=== PATIENT | female | born 1965 | race African-American/Black ===

== ENCOUNTER → 2017-09-09 | Outpatient (CLI) | payer BC ==
--- NOTE | 2017-09-10 08:13 | MM ---
Reason for exam: screening (asymptomatic). Last mammogram was performed 4 years and 1 month ago. History: Reductions of both breasts, 2014. Took hormonal contraceptives for 9 years. Physical Findings: A clinical breast exam by your physician is recommended on an annual basis and results should be correlated with mammographic findings. MG Screening Mammo w CAD Bilateral CC and MLO view(s) were taken. Prior study comparison: August 12, 2013, bilateral digital screening mammo w/CAD. May 12, 2009, bilateral digital screening mammogram. There are scattered fibroglandular densities. Breasts are smaller compatible with patients weight loss. No significant changes when compared with prior studies. ASSESSMENT: Negative, BI-RAD 1 RECOMMENDATION: Routine screening mammogram of both breasts in 1 year.
== END | disposition home or self-care (01) ==
LOC: RADMAMWWP 06:56
PROVIDERS: ATTEND Family Medicine
DX: Z12.31 Encounter for screening mammogram for malignant neoplasm of breast (principal)

== ENCOUNTER 2017-10-15 07:04 | Day surgery (SDC) | payer BC ==
[2017-10-14 10:42] VITALS: BMI 33.2
[~2017-10-15 07:04] MED LIST: LACTATED RINGERS 1,000 ML IV SCH
[2017-10-15] MEDS ORDERED: LACTATED RINGERS 1,000 ML IV ONE (07:14)
[2017-10-15 07:27] VITALS: RESP 16; TEMP 98.2
[2017-10-15] MEDS ORDERED: LIDOCAINE 1% INJ 10MG/ML (20 ML MDV) ONE (07:40)
[2017-10-15] MEDS ORDERED: PROPOFOL 10 MG/ML 20 ML VIAL IV ONE (07:40)
--- NOTE | 2017-10-15 07:54 | P.GSHP ---
History of Present Illness H&P Date: 10/15/17 Chief Complaint: Screening colonoscopy This a 52-year-old female referred from Dr. Grande. Patient is today for screening colonoscopy. She denies a significant GI complaints. Past Medical History Past Medical History: GERD/Reflux, Hypertension Additional Past Medical History / Comment(s): hx. MIGRAINES, anemia History of Any Multi-Drug Resistant Organisms: None Reported Past Surgical History: Adenoidectomy, Bariatric Surgery, Breast Surgery, Section, Cholecystectomy, Orthopedic Surgery, Tonsillectomy, Uterine Ablation Additional Past Surgical History / Comment(s): ISABELA KNEE ARTHROSCOPY,CYSTOSCOPY, LAPAROSCOPIC DARIAN-EN-Y , PANNICULECTOMY, breast reduction Past Anesthesia/Blood Transfusion Reactions: No Reported Reaction Smoking Status: Current every day smoker - Past Family History Father Family Medical History: Cancer Medications and Allergies Home Medications Medication Instructions Recorded Confirmed Type Buta/APAP/Caf/Cod 83-632-05-30 1 - 2 each PO DAILY PRN 03/24/14 10/15/17 History [Fioricet W/Codeine] Cholecalciferol [Vitamin D3] 50,000 unit PO WEEKLY 03/24/14 10/15/17 History Omeprazole [PriLOSEC] 40 mg PO DAILY 03/24/14 10/15/17 History Ferrous Sulfate [Feosol] 325 mg PO DAILY 06/13/15 10/15/17 History Folic Acid 1 mg PO DAILY 06/13/15 10/15/17 History ALPRAZolam [Xanax] 0.25 mg PO BID PRN 10/14/17 10/15/17 History Cholecalciferol [Vitamin D3] 5,000 unit PO DAILY 10/14/17 10/15/17 History Losartan-Hctz 50-12.5 mg [Hyzaar 1 each PO DAILY 10/14/17 10/15/17 History 50-12.5] Multivit with Calcium,Iron,Min 1 each PO DAILY 10/14/17 10/15/17 History [Women's Multivitamin] Potassium 99 mg PO DAILY 10/14/17 10/15/17 History oxyCODONE-APAP 7.5-325MG [Percocet 1 tab PO Q6HR PRN 10/14/17 10/15/17 History 7.5-325 mg] Allergies Allergy/AdvReac Type Severity Reaction Status Date / Time No Known Allergies Allergy Verified 10/15/17 07:31 Surgical - Exam Vital Signs Temp Pulse Resp BP Pulse Ox 98.2 F 85 16 131/89 100 10/15/17 07:25 10/15/17 07:25 10/15/17 07:25 10/15/17 07:25 10/15/17 07:25 - General well developed, no distress - Eyes PERRL - ENT normal pinna - Neck no masses - Respiratory normal expansion - Cardiovascular Rhythm: regular - Abdomen Abdomen: soft, non tender Assessment and Plan Assessment: We'll perform screening colonoscopy.
--- NOTE | 2017-10-15 08:07 | P.OP ---
Date of Procedure: 10/15/17 Preoperative Diagnosis: Screening colonoscopy Postoperative Diagnosis: Normal colonoscopy Procedure(s) Performed: Colonoscopy Anesthesia: MAC Surgeon: Tim Dunn Pathology: none sent Condition: stable Disposition: PACU Description of Procedure: PROCEDURE: The patient was placed on the endoscopy table in the lateral position. Digital rectal examination was performed which revealed no abnormalities. Flexible colonoscope was then placed in the patient's anus and passed throughout the entire colon. The ileocecal valve was visualized. The cecum, ascending, transverse, descending and sigmoid colon were normal. The rectum was normal as well. There were no masses, polyps or diverticula noted in the entire colon. SUMMARY OF FINDINGS: Normal colonoscopy.
[2017-10-15 08:27] VITALS: BP 144/90; PULSE 77
== END 2017-10-15 09:01 | disposition home or self-care (01) ==
LOC: ORWHC2ENDO 07:04
PROVIDERS: ATTEND Surgery
DX: Z12.11 Encounter for screening for malignant neoplasm of colon (principal); I10 Essential (primary) hypertension; K21.9 Gastro-esophageal reflux disease without esophagitis; D64.9 Anemia, unspecified; F17.200 Nicotine dependence, unspecified, uncomplicated; Z79.899 Other long term (current) drug therapy; Z98.84 Bariatric surgery status; Z80.9 Family history of malignant neoplasm, unspecified
CPT/HCPCS: 81025; G0121; J2001; J2704

== ENCOUNTER → 2018-12-27 | Outpatient (CLI) | payer BC ==
--- NOTE | 2018-12-29 11:50 | MM ---
Reason for exam: screening (asymptomatic). Last mammogram was performed 1 year and 4 months ago. History: Reductions of both breasts, 2013. Took hormonal contraceptives for 9 years. Physical Findings: A clinical breast exam by your physician is recommended on an annual basis and results should be correlated with mammographic findings. MG Screening Mammo w CAD Bilateral CC and MLO view(s) were taken. Prior study comparison: September 09, 2017, bilateral MG screening mammo w CAD. August 12, 2013, bilateral digital screening mammo w/CAD. There are scattered fibroglandular densities. Benign appearing bilateral calcifications. No suspicious abnormality. No significant changes when compared with prior studies. ASSESSMENT: Benign, BI-RAD 2 RECOMMENDATION: Routine screening mammogram of both breasts in 1 year.
== END | disposition home or self-care (01) ==
LOC: RADMAMWWP 11:31
PROVIDERS: ATTEND Family Medicine
DX: Z12.31 Encounter for screening mammogram for malignant neoplasm of breast (principal)
CPT/HCPCS: 77067

== ENCOUNTER 2019-05-13 18:10 | Emergency (ER) | payer BC ==
[2019-05-13] MEDS ORDERED: KETOROLAC 60 MG/2 ML VIAL IM STA (19:03)
--- NOTE | 2019-05-13 19:08 | ED ---
General Adult HPI - General Chief complaint: Extremity Injury, Upper Stated complaint: carpal tunnel flare Time Seen by Provider: 05/13/19 18:30 Source: patient, family Mode of arrival: ambulatory - History of Present Illness Initial comments: Patient is a 54-year-old female complaining of right wrist pain 3-4 days. Patient states she has known carpal tunnel the right wrist and wears a splint at night. 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 Patient denies any injury to the rest. Patient admits to having oxycodone at home for pain. Pt has no other complaints at this time. - Related Data Home Medications Medication Instructions Recorded Confirmed Buta/APAP/Caf/Cod [id number] 1 - 2 each PO DAILY PRN 03/24/14 10/15/17 [Fioricet W/Codeine] Cholecalciferol [Vitamin D3] 50,000 unit PO WEEKLY 03/24/14 10/15/17 Omeprazole [PriLOSEC] 40 mg PO DAILY 03/24/14 10/15/17 Ferrous Sulfate [Feosol] 325 mg PO DAILY 06/13/15 10/15/17 Folic Acid 1 mg PO DAILY 06/13/15 10/15/17 ALPRAZolam [Xanax] 0.25 mg PO BID PRN 10/14/17 10/15/17 Cholecalciferol [Vitamin D3] 5,000 unit PO DAILY 10/14/17 10/15/17 Losartan-Hctz 50-12.5 mg [Hyzaar 1 each PO DAILY 10/14/17 10/15/17 50-12.5] Multivit with Calcium,Iron,Min 1 each PO DAILY 10/14/17 10/15/17 [Women's Multivitamin] Potassium 99 mg PO DAILY 10/14/17 10/15/17 oxyCODONE-APAP 7.5-325MG [Percocet 1 tab PO Q6HR PRN 10/14/17 10/15/17 7.5-325 mg] Previous Rx's Medication Instructions Recorded methylPREDNISolone [Medrol Dose 4 mg PO DIRECTED #1 pack 05/13/19 Pack] Allergies Allergy/AdvReac Type Severity Reaction Status Date / Time No Known Allergies Allergy Verified 05/13/19 18:29 Review of Systems ROS Statement: Those systems with pertinent positive or pertinent negative responses have been documented in the HPI. ROS Other: All systems not noted in ROS Statement are negative. Past Medical History Past Medical History: GERD/Reflux, Hypertension Additional Past Medical History / Comment(s): hx. MIGRAINES, anemia History of Any Multi-Drug Resistant Organisms: None Reported Past Surgical History: Adenoidectomy, Bariatric Surgery, Breast Surgery, Section, Cholecystectomy, Orthopedic Surgery, Tonsillectomy, Uterine Ablation Additional Past Surgical History / Comment(s): ISABELA KNEE ARTHROSCOPY,CYSTOSCOPY,LAPAROSCOPIC DARIAN-EN-Y , PANNICULECTOMY, breast reduction Past Anesthesia/Blood Transfusion Reactions: No Reported Reaction Past Psychological History: No Psychological Hx Reported Smoking Status: Current every day smoker Past Alcohol Use History: None Reported Past Drug Use History: None Reported - Past Family History Father Family Medical History: Cancer General Exam - General Exam Comments Initial Comments: GENERAL: Well-appearing, well-nourished and in no acute distress. HEAD: Atraumatic, normocephalic. EYES: Pupils equal round and reactive to light, extraocular movements intact, sclera anicteric, conjunctiva are normal. ENT: TMs normal, nares patent, oropharynx clear without exudates. Moist mucous membranes. NECK: Normal range of motion, supple without lymphadenopathy or JVD. LUNGS: Breath sounds clear to auscultation bilaterally and equal. No wheezes rales or rhonchi. HEART: Regular rate and rhythm without murmurs, rubs or gallops. ABDOMEN: Soft, nontender, normoactive bowel sounds. No guarding, no rebound. No masses appreciated. : Deferred EXTREMITIES: Pain in the right wrist, palmar aspect. Sensation is equal, bilateral. Normal range of motion of the right wrist. No erythema, bruising, edema. NEUROLOGICAL: Cranial nerves II through XII grossly intact. Normal speech, normal gait. PSYCH: Normal mood, normal affect. SKIN: Warm, Dry, normal turgor, no rashes or lesions noted. Course Vital Signs 05/13/19 05/13/19 18:26 19:16 Temperature 98.9 F 98.2 F Pulse Rate 75 78 Respiratory 18 16 Rate Blood Pressure 150/98 140/84 O2 Sat by Pulse 100 98 Oximetry Medical Decision Making - Medical Decision Making Patient is a 54-year-old female complaining of increased pain from right wrist carpal tunnel. Patient denies any trauma to right wrist. Patient was given a Toradol injection and counseled on using NSAIDs for pain relief. Patient will be given a short course of steroids upon discharge. Patient was counseled to follow up with her PCP for further management. Disposition Clinical Impression: Carpal tunnel syndrome, right, Pain in right wrist Disposition: HOME SELF-CARE Condition: Stable Instructions (If sedation given, give patient instructions): Swollen Joint (ED) Additional Instructions: Please return to the Emergency Department if symptoms worsen or any other concerns. Follow-up with PCP regarding further management. Prescriptions: methylPREDNISolone [Medrol Dose Pack] 4 mg PO DIRECTED #1 pack Is patient prescribed a controlled substance at d/c from ED?: No Referrals: Marcel Grande MD [Primary Care Provider] - 1-2 days
[2019-05-13 19:17] VITALS: BP 140/84; PULSE 78; RESP 16; TEMP 98.2
== END 2019-05-13 19:16 | disposition home or self-care (01) ==
LOC: EC 18:10
DX: G56.01 Carpal tunnel syndrome, right upper limb (principal); I10 Essential (primary) hypertension; K21.9 Gastro-esophageal reflux disease without esophagitis; F17.200 Nicotine dependence, unspecified, uncomplicated; Z79.899 Other long term (current) drug therapy; Z98.84 Bariatric surgery status
CPT/HCPCS: 99283; 96372; J1885

== ENCOUNTER 2019-08-11 06:28 | Day surgery (SDC) | payer BC ==
[2019-08-06 15:13] VITALS: BMI 32.6
[~2019-08-11 06:28] MED LIST changes: +LIDOCAINE 1% 20 ML VIAL (10MG/ML) FOR IV START INTRADERMA PRN; +Pre Op ABX Message 1 EACH MISC MISCELLANE ONE
[2019-08-11 06:44] VITALS: RESP 16
[2019-08-11] MEDS ORDERED: fentaNYL (PF) 50 MCG/ML 2 ML AMP ONE (07:31)
[2019-08-11] MEDS ORDERED: PROPOFOL 10 MG/ML 20 ML VIAL IV ONE (07:31)
[2019-08-11] MEDS ORDERED: KETAMINE 10 MG/ML 20 ML VIAL ONE (07:31)
[2019-08-11] MEDS ORDERED: MIDAZOLAM 2 MG/2 ML VIAL ONE (07:31)
[2019-08-11] MEDS ORDERED: LIDOCAINE 1%-EPI 1:100,000 20 ML VIAL SQ ONE (07:35)
[2019-08-11] MEDS ORDERED: BUPIVACAINE (PF) 0.5% 30 ML VIAL SQ ONE (07:35)
[2019-08-11 08:45] VITALS: BP 121/69; PULSE 59
--- NOTE | 2019-08-13 07:46 | P.OP ---
Date of Procedure: 08/11/19 Preoperative Diagnosis: Right carpal tunnel syndrome Postoperative Diagnosis: Right carpal tunnel syndrome Procedure(s) Performed: Right endoscopic carpal tunnel release Anesthesia: MAC, local Surgeon: Ricardo Tobias Estimated Blood Loss (ml): 1 Condition: stable Disposition: PACU Indications for Procedure: The patient is a pleasant 54-year-old female who was diagnosed with right carpal tunnel syndrome. Treatment options (and associated risks and benefits) were discussed in the office. The patient elected to proceed with surgical release. In preop, the patient denied any additional questions or concerns. Consent forms were signed. The operative site was confirmed and marked. Description of Procedure: The patient was positioned supine with the right arm on an arm board. A tourniquet was applied. Monitored anesthesia was administered uneventfully. A time-out was performed, confirming patient identifiers, the operative side, site and the procedure to be performed: all team members expressed agreement. Using aseptic technique, local anesthetic was injected into the subcutaneous tissues around the planned incision. The right upper extremity was then prepped and draped in standard, sterile fashion. The limb was exsanguinated with an Esmarch and the tourniquet was inflated. Loupe magnification was used throughout the case for optimum visualization. A 1.5 cm transverse incision was marked just proximal to the wrist flexion crease, in line with the radial border of the ring finger. The skin was sharply incised and the subcutaneous tissues were bluntly spread. The volar carpal fascia was identified and sharply incised. A synovial elevator was used to release adhesions on the underside of the transverse carpal ligament. The washboard effect was palpable. A dilator was inserted to sound and enlarge the carpal tunnel. The hamate hook was palpable ulnarly. The side-specific guide and camera were inserted. The transverse carpal ligament was clearly visualized above. The distal edge of the ligament was identified and palpated with a probe. A rasp was used to clear the remaining synovial adhesions. The endoscopic blade was inserted and the distal half of the ligament was sharply incised. This was quite thickened and dense. Residual distal transverse fibers were released and then the proximal portion of the ligament was divided. Wide release of ligament was visually confirmed. The camera was removed. The volar carpal fascia proximal and distal to the incision was released with scissors under direct visualization. The tourniquet was released. Good hemostasis was obtained with held pressure. The wound was thoroughly irrigated with normal saline. The incision was closed with interrupted 4-0 Nylon sutures. Additional local anesthetic with epinephrine was injected for adjunctive postoperative pain control and hemostasis. A soft, sterile dressing was applied. All sponge, needle and instrument counts were correct at the end of the case. The patient tolerated the procedure well and was transferred to recovery in stable condition.
== END 2019-08-11 09:05 | disposition home or self-care (01) ==
LOC: OR 06:28
PROVIDERS: ATTEND Orthopaedic Surgery
DX: G56.03 Carpal tunnel syndrome, bilateral upper limbs (principal); I10 Essential (primary) hypertension; K21.9 Gastro-esophageal reflux disease without esophagitis; M18.0 Bilateral primary osteoarthritis of first carpometacarpal joints; F17.210 Nicotine dependence, cigarettes, uncomplicated; Z87.442 Personal history of urinary calculi; Z79.891 Long term (current) use of opiate analgesic; Z79.1 Long term (current) use of non-steroidal anti-inflammatories (NSAID); Z79.899 Other long term (current) drug therapy; Z97.3 Presence of spectacles and contact lenses; Z98.890 Other specified postprocedural states; Z83.3 Family history of diabetes mellitus; Z82.49 Family history of ischemic heart disease and other diseases of the circulatory system
CPT/HCPCS: 29848; J2250; J3010; J2704

== ENCOUNTER → 2020-06-06 | Outpatient (CLI) | payer BC ==
--- NOTE | 2020-06-08 11:05 | MM ---
Reason for exam: screening (asymptomatic). Last mammogram was performed 1 year and 5 months ago. History: Reductions of both breasts, 2013. Took hormonal contraceptives for 9 years. Physical Findings: A clinical breast exam by your physician is recommended on an annual basis and results should be correlated with mammographic findings. MG Screening Mammo w CAD Bilateral CC and MLO view(s) were taken. Prior study comparison: December 27, 2018, bilateral MG screening mammo w CAD. September 09, 2017, bilateral MG screening mammo w CAD. There are scattered fibroglandular densities. No significant changes when compared with prior studies. ASSESSMENT: Benign, BI-RAD 2 RECOMMENDATION: Routine screening mammogram of both breasts in 1 year.
== END | disposition home or self-care (01) ==
LOC: RADMAMWWP 16:13
PROVIDERS: ATTEND Family Medicine
DX: Z12.31 Encounter for screening mammogram for malignant neoplasm of breast (principal)
CPT/HCPCS: 77067

== ENCOUNTER → 2020-12-15 | Outpatient (CLI) | payer BC ==
[2020-12-15 17:50] LABS: African American GFR (CKD) >90 (>60 ml/min/1.73 sqM); Blood Urea Nitrogen 16 mg/dL (7-17); Non-African American GFR(CKD) >90 (>60 ml/min/1.73 sqM)
--- NOTE | 2020-12-16 08:22 | CT ---
EXAMINATION TYPE: CT angio abdomen DATE OF EXAM: 12/15/2020 HISTORY: Gross hematuria. CT DLP: 1173.8mGycm Automated Exposure Control for Dose Reduction was Utilized. CONTRAST: CT scan of the abdomen is performed without oral but with IV Contrast, patient injected with 100ml mL of Isovue 370. COMPARISON: CT abdomen July 18, 2015 FINDINGS: VASCULAR: Patent celiac artery, SMA, ALEXIS, and bilateral single renal arteries. Patent iliac arteries in the abdomen and upper pelvis. Mild calcified plaque in the left common iliac artery. No significan t stenosis. No linear hypodensity to suggest dissection. No aneurysm. LUNG BASES: No significant abno rmality is appreciated. LIVER/GB: Cholecystectomy clips are redemonstrated. PANCREAS: No significant abnormality is seen. SPLEEN: No significant abnormality is seen. ADRENALS: No significant abnormality is seen. KIDNEYS: Symmetric cortical medullary uptake and excretion with simple appearing 1.5 cm thin-walled c yst upper pole right kidney axial image 28 redemonstrated. Some small nonobstructing scattered right- sided renal calculi measuring up to 6 mm in size. Focal scarring lateral aspect upper pole right kidn ey redemonstrated. No hydronephrosis seen bilaterally. BOWEL: Patient has little intra-abdominal fat. No suspicious small or large bowel dilatation. Surgica l changes epigastric region from gastric bypass surgery redemonstrated. LYMPH NODES: No greater than 1cm abdominal lymph nodes are appreciated. OSSEOUS STRUCTURES: Interval surgery with metallic disc material L4-L5 level. Subtle grade 1 anteroli sthesis L4 on L5. Alignment stable. OTHER: Stable intramuscular lipoma of the right external oblique muscle measuring 4.5 x 1.8 cm axial image 42. Linear densities in the upper pelvis are symmetric along the anterior superior aspect of th e uterus could relate to prior pelvic surgery. IMPRESSION: No significant vascular anomaly. Right-sided nephrolithiasis redemonstrated. No hydroneph rosis identified bilaterally.
== END | disposition home or self-care (01) ==
LOC: RADCTMAIN 17:09
PROVIDERS: ATTEND Urology
DX: N20.0 Calculus of kidney (principal)
CPT/HCPCS: 82565; 84520; 74175; 36415; Q9967

== ENCOUNTER → 2020-12-16 | Outpatient (CLI) | payer BC ==
[2020-12-16 13:13] LABS: Basophils % (A) 1 %; Eosinophils # (A) 0.1 k/uL (0-0.7); Eosinophils % (A) 1 %; HCT 40.9 % (34.0-46.0); Lymphocytes # (A) 1.5 k/uL (1.0-4.8); Lymphocytes % (A) 23 %; MCHC 31.7 g/dL (31.0-37.0); Mean Platelet Volume 7.7; Monocytes # (A) 0.3 k/uL (0-1.0); Monocytes % (A) 4 %; Neutrophils # (A) 4.4 k/uL (1.3-7.7); Neutrophils % (A) 68 %; Platelet Count 284 k/uL (150-450); RBC 4.05 m/uL (3.80-5.40); RDW 12.5 % (11.5-15.5); WBC 6.5 k/uL (3.8-10.6)
[2020-12-16 15:31] LABS: Erythrocyte Sedimentation Rate 61 mm/hr (0-20)
[2020-12-16 21:15] LABS: Cyclic Citrull Pep IgG Unit >300.0 U/mL; Cyclic Citrullinated Pep IgG POSITIVE (NEGATIVE)
[2020-12-16 21:41] LABS: Albumin 4.4 g/dL (3.80-4.90); Albumin/Globulin Ratio 2.1 (1.60-3.17); Anion Gap 18.5 mmol/L (4.00-12.00); BUN/Creat Ratio 22.22 Ratio (12.00-20.00); C Reactive Protein 1.4 mg/dL (0.0-0.8); Calcium 9.5 mg/dL (8.7-10.3); Carbon Dioxide 27.5 mmol/L (21.6-31.8); Globulin 2.1 g/dL (1.6-3.3); Non-African American GFR(CKD) 72.5 (60.0-200.0); Potassium 4.4 mmol/L (3.5-5.5); Total Bilirubin 0.2 mg/dL (0.3-1.2); Total Protein 6.5 g/dL (6.2-8.2)
[2020-12-20 15:14] LABS: ANA Pattern Homogeneous
== END | disposition home or self-care (01) ==
LOC: LABWHC1 12:24
PROVIDERS: ATTEND Family Medicine
DX: M25.50 Pain in unspecified joint (principal); F11.20 Opioid dependence, uncomplicated
CPT/HCPCS: 36415; 80053; 85025; 85652; 86038; 86039; 86140; 86200; 86431

== ENCOUNTER → 2021-05-20 | Outpatient (CLI) | payer BC ==
--- NOTE | 2021-05-20 14:17 | MR ---
EXAMINATION TYPE: MR shoulder RT wo con DATE OF EXAM: 05/20/2021 COMPARISON: None HISTORY: Right shoulder pain x 6 mos. Exam performed with no contrast. Biceps tendon is intact. Glenoid zenia appear intact. The subscapularis tendon is intact. There is some thickening and increased signal in the supraspinatus tendon at the greater tuberosity o f the humerus. There is some spurring at the AC joint and mild impingement on the supraspinatus tendo n. There is no retraction of the supraspinatus tendon. There is some spurring of the humeral head. There is narrowing of the glenohumeral joint space with s ubchondral cystic changes in the glenoid. IMPRESSION: Osteoarthritis at the glenohumeral joint. There is mild thickening and increased signal in the supras pinatus tendon consistent with tendinitis. I do not see a full-thickness tear. No fracture.
== END | disposition home or self-care (01) ==
LOC: RADMRIMAIN 12:45
PROVIDERS: ATTEND Nurse Practitioner Family
DX: M19.011 Primary osteoarthritis, right shoulder (principal)

== ENCOUNTER → 2021-08-10 | Outpatient (CLI) | payer BC ==
--- NOTE | 2021-08-11 12:33 | MM ---
Reason for exam: screening (asymptomatic). Last mammogram was performed 1 year and 2 months ago. History: Reductions of both breasts, 2014. Took hormonal contraceptives for 9 years. Physical Findings: A clinical breast exam by your physician is recommended on an annual basis and results should be correlated with mammographic findings. MG Screening Mammo w CAD Bilateral CC and MLO view(s) were taken. Prior study comparison: June 06, 2020, bilateral MG screening mammo w CAD. December 27, 2018, bilateral MG screening mammo w CAD. September 09, 2017, bilateral MG screening mammo w CAD. There are scattered fibroglandular densities. Focal asymmetry left MLO view, new. This finding is changed when compared with previous exams. ASSESSMENT: Incomplete: need additional imaging evaluation, BI-RAD 0 RECOMMENDATION: Special view mammogram of the left breast. If lesion persists on supplemental views, image directed ultrasound is recommended. [facility] will attempt to contact patient to return for supplemental views and ultrasound if indicated.
== END | disposition home or self-care (01) ==
LOC: RADMAMWWP 15:16
PROVIDERS: ATTEND Family Medicine
DX: Z12.31 Encounter for screening mammogram for malignant neoplasm of breast (principal); Z79.3 Long term (current) use of hormonal contraceptives
CPT/HCPCS: 77067

== ENCOUNTER → 2021-08-18 | Outpatient (CLI) | payer BC ==
--- NOTE | 2021-08-18 11:16 | MM ---
Reason for exam: additional evaluation requested from abnormal screening. Last mammogram was performed less than 1 month ago. History: Reductions of both breasts, 2013. Took hormonal contraceptives for 9 years. Physical Findings: Nurse did not find any significant physical abnormalities on exam. MG Work Up Mamm w CAD LT CC, MLO, ML, and spot compression MLO view(s) were taken of the left breast. Prior study comparison: August 10, 2021, bilateral MG screening mammo w CAD. June 06, 2020, bilateral MG screening mammo w CAD. There are scattered fibroglandular densities. There is no discrete abnormality including area of concern. These results were verbally communicated with the patient and result sheet given to the patient on 08/18/21. ASSESSMENT: Benign, BI-RAD 2 RECOMMENDATION: Return to routine screening mammogram schedule for both breasts.
== END | disposition home or self-care (01) ==
LOC: RADMAMWWP 07:00
PROVIDERS: ATTEND Family Medicine
DX: N64.89 Other specified disorders of breast (principal); Z79.3 Long term (current) use of hormonal contraceptives
CPT/HCPCS: 77065

== ENCOUNTER 2024-03-05 08:10 | Day surgery (SDC) | payer BC ==
[2024-03-03 11:09] VITALS: BMI 36.4
--- NOTE | 2024-03-05 07:43 | P.GSHP ---
History of Present Illness H&P Date: 03/05/24 CHIEF COMPLAINT: GERD HISTORY OF PRESENT ILLNESS: The patient is a 59-year-old female who presents reports gastroesophageal reflux disease. Upper endoscopy was offered for further evaluation and management. PAST MEDICAL HISTORY: Please see list. PAST SURGICAL HISTORY: Please see list. MEDICATIONS: Please see list. ALLERGIES: Please see list. SOCIAL HISTORY: No illicit drug use FAMILY HISTORY: No reports of Crohn disease or ulcerative colitis. REVIEW OF ORGAN SYSTEMS: CONSTITUTIONAL: No reports of fevers or chills. GI: Denies any blood in stools or constipation. PHYSICAL EXAM: VITAL SIGNS: Stable GENERAL: Well-developed and pleasant in no acute distress. HEENT: No scleral icterus. Extraocular movements grossly intact. Moist buccal mucosa. NECK: Supple without lymphadenopathy. CHEST: Unlabored respirations. Equal bilateral excursions. CARDIOVASCULAR: Regular rate and rhythm. Distal 2+ pulses. ABDOMEN: Soft, nondistended. MUSCULOSKELETAL: No clubbing, cyanosis, or edema. ASSESSMENT: 1. Gastroesophageal reflux disease PLAN: 1. Recommend proceeding with an upper endoscopy Past Medical History Past Medical History: GERD/Reflux, Hypertension, Rheumatoid Arthritis (RA) Additional Past Medical History / Comment(s): Migraines, hx of kidney stones. History of Any Multi-Drug Resistant Organisms: None Reported Past Surgical History: Adenoidectomy, Back Surgery, Bariatric Surgery, Breast Surgery, Section, Cholecystectomy, Orthopedic Surgery, Tonsillectomy, Uterine Ablation Additional Past Surgical History / Comment(s): BILATERAL KNEE ARTHROSCOPY, CYSTOSCOPY, LAPAROSCOPIC DARIAN-EN-Y, PANNICULECTOMY, breast reduction, cage in back. Past Anesthesia/Blood Transfusion Reactions: No Reported Reaction Smoking Status: Current every day smoker - Past Family History Father Family Medical History: Cancer Medications and Allergies Home Medications Medication Instructions Recorded Confirmed Type Buta/APAP/Caf/Cod 19-506-02-30 1 - 2 each PO DAILY PRN 03/24/14 03/03/24 History [Fioricet W/Codeine] Cholecalciferol [Vitamin D3] 50,000 unit PO MO 03/24/14 03/03/24 History Omeprazole [PriLOSEC] 40 mg PO BID 03/24/14 03/03/24 History Ferrous Sulfate [Feosol] 325 mg PO BID 06/13/15 03/03/24 History Folic Acid 1 mg PO DAILY 06/13/15 03/03/24 History ALPRAZolam [Xanax] 0.25 mg PO BID PRN 10/14/17 03/03/24 History Losartan-Hctz 50-12.5 mg [Hyzaar 1 each PO DAILY 10/14/17 03/03/24 History 50-12.5] Potassium 99 mg PO DAILY 10/14/17 03/03/24 History oxyCODONE-APAP 10-325MG [Percocet 1 tab PO Q6HR PRN 08/11/19 03/03/24 History 10-325 mg] Cyclobenzaprine [Flexeril] 10 mg PO TID PRN 03/03/24 03/03/24 History Flaxseed Oil (Unknown Dose) 1 tab PO DAILY 03/03/24 03/03/24 History Golo (Dietary Supplement) 1 tab PO DAILY 03/03/24 03/03/24 History Hydroxychloroquine Sulfate 200 mg PO BID 03/03/24 03/03/24 History Ketorolac [Toradol] 10 mg PO Q6HR PRN 03/03/24 03/03/24 History L.acidoph,Paracasei, B.lactis 1 each PO DAILY 03/03/24 03/03/24 History [Probiotic] Mv-Min/Folic/Vit K/Lut/Flbo992 1 each PO DAILY 03/03/24 03/03/24 History [Alive Women's 50 Plus Tablet] Rizatriptan Benzoate [Rizatriptan] 10 mg PO DIRECTED PRN 03/03/24 03/03/24 History Vitamin B-12 (Unknown Dose) 1 tab PO DAILY 03/03/24 03/03/24 History Zinc (Unknown Dose) 1 tab PO DAILY 03/03/24 03/03/24 History Allergies Allergy/AdvReac Type Severity Reaction Status Date / Time No Known Allergies Allergy Verified 03/03/24 10:30
[~2024-03-05 08:10] MED LIST changes: -LACTATED RINGERS 1,000 ML IV SCH; +LIDOCAINE 1% (10MG/ML) FOR IV START INTRADERMA PRN; -LIDOCAINE 1% 20 ML VIAL (10MG/ML) FOR IV START INTRADERMA PRN; -Pre Op ABX Message 1 EACH MISC MISCELLANE ONE
[2024-03-05] MEDS: LACTATED RINGERS 1,000 ML IV SCH (08:40)
[2024-03-05 08:47] VITALS: PULSE 77; RESP 16; TEMP 96.8
[2024-03-05] MEDS ORDERED: LIDOCAINE 1% INJ 10MG/ML (20 ML MDV) ONE (10:00)
[2024-03-05] MEDS ORDERED: PROPOFOL 10 MG/ML 20 ML VIAL IV ONE (10:00)
--- NOTE | 2024-03-05 10:34 | P.PCN ---
Date of Procedure: 03/05/24 Description of Procedure: PREOPERATIVE DIAGNOSES: 1. Epigastric abdominal pain. 2. Nausea and vomiting. 3. History of gastric bypass. 4. History of gastric ulcers. POSTOPERATIVE DIAGNOSES: 1. Acute gastrojejunal ulcer PROCEDURE PERFORMED: Esophagogastrojejunoscopy with biopsies obtained SURGEON: Shirin Darden MD ANESTHESIA: MAC. INDICATIONS: The patient is a 59-year-old female with prior history of Baljit-en-Y gastric bypass approximately 11 years ago. In the last several weeks, she has had intermittent nausea and vomiting, particularly of the epigastric abdominal pain. With history of Baljit-en-Y gastric bypass, upper endoscopy was offered for further evaluation and management. DESCRIPTION: Patient was brought to the endoscopy suite and laid in the left lateral decubitus position. After adequate IV sedation, a bite block was placed. An Olympus gastroscope was passed along the posterior oropharynx down to the distal esophagus where the squamocolumnar junction was found at approximately 38 cm from the incisors. The anastomosis was found at 42 cm, consistent with approximately 4 cm gastric pouch. The scope was advanced 60 cm from the incisors. No evidence of foreign body was found. Active gastrojejunal ulcerations were encountered. Biopsies obtained of gastric pouch. The GI tract was desufflated. The patient tolerated the procedure well. FINDINGS: 1. Acute gastrojejunal ulceration, 5 mm 2. No foreign body found along the anastomosis. 3. Biopsies obtained of gastric pouch. PLAN: 1. Add Carafate 1 g twice daily Plan - Discharge Summary Discharge Rx Participant: No New Discharge Prescriptions: New Sucralfate [Carafate] 1 gm PO BID #30 tablet Continue Cholecalciferol [Vitamin D3 (25 Mcg = 1000 Iu)] 50,000 unit PO MO Omeprazole [PriLOSEC] 40 mg PO BID Buta/APAP/Caf/Cod 75-173-83-30 [Fioricet w/Cod 47-004-75-30MG] 1 - 2 each PO DAILY PRN PRN Reason: Migraine Headache Folic Acid 1 mg PO DAILY Ferrous Sulfate [Iron (65 MG Elemental)] 325 mg PO BID ALPRAZolam [Xanax] 0.25 mg PO BID PRN PRN Reason: Anxiety Potassium 99 mg PO DAILY Losartan-Hctz 50-12.5 mg [Hyzaar 50-12.5] 1 each PO DAILY oxyCODONE-APAP 10-325MG [Percocet 10-325 mg] 1 tab PO Q6HR PRN PRN Reason: Pain Cyclobenzaprine [Flexeril] 10 mg PO TID PRN PRN Reason: Muscle Spasm Golo (Dietary Supplement) 1 tab PO DAILY Ketorolac [Toradol] 10 mg PO Q6HR PRN PRN Reason: Pain Rizatriptan Benzoate [Rizatriptan] 10 mg PO DIRECTED PRN PRN Reason: Migraine Headache Mv-Min/Folic/Vit K/Lut/Vcdo665 [Alive Women's 50 Plus Tablet] 1 each PO DAILY Hydroxychloroquine Sulfate 200 mg PO BID Vitamin B-12 (Unknown Dose) 1 tab PO DAILY Zinc (Unknown Dose) 1 tab PO DAILY Flaxseed Oil (Unknown Dose) 1 tab PO DAILY L.acidoph,Paracasei, B.lactis [Probiotic] 1 each PO DAILY Discharge Medication List Buta/APAP/Caf/Cod 26-946-00-30 [Fioricet w/Cod 45-461-83-30MG] 1 - 2 each PO DAILY PRN 03/24/14 [History] Cholecalciferol [Vitamin D3 (25 Mcg = 1000 Iu)] 50,000 unit PO MO 03/24/14 [History] Omeprazole [PriLOSEC] 40 mg PO BID 03/24/14 [History] Ferrous Sulfate [Iron (65 MG Elemental)] 325 mg PO BID 06/13/15 [History] Folic Acid 1 mg PO DAILY 06/13/15 [History] ALPRAZolam [Xanax] 0.25 mg PO BID PRN 10/14/17 [History] Losartan-Hctz 50-12.5 mg [Hyzaar 50-12.5] 1 each PO DAILY 10/14/17 [History] Potassium 99 mg PO DAILY 10/14/17 [History] oxyCODONE-APAP 10-325MG [Percocet 10-325 mg] 1 tab PO Q6HR PRN 08/11/19 [History] Cyclobenzaprine [Flexeril] 10 mg PO TID PRN 03/03/24 [History] Flaxseed Oil (Unknown Dose) 1 tab PO DAILY 03/03/24 [History] Golo (Dietary Supplement) 1 tab PO DAILY 03/03/24 [History] Hydroxychloroquine Sulfate 200 mg PO BID 03/03/24 [History] Ketorolac [Toradol] 10 mg PO Q6HR PRN 03/03/24 [History] L.acidoph,Paracasei, B.lactis [Probiotic] 1 each PO DAILY 03/03/24 [History] Mv-Min/Folic/Vit K/Lut/Vhwe380 [Alive Women's 50 Plus Tablet] 1 each PO DAILY 03/03/24 [History] Rizatriptan Benzoate [Rizatriptan] 10 mg PO DIRECTED PRN 03/03/24 [History] Vitamin B-12 (Unknown Dose) 1 tab PO DAILY 03/03/24 [History] Zinc (Unknown Dose) 1 tab PO DAILY 03/03/24 [History] Sucralfate [Carafate] 1 gm PO BID #30 tablet 03/05/24 [Rx] Follow up [facility]ment(s[facility]Ref[facility] [place] [facility] - 03/18/24 4:00 pm Patient Instructions/Handouts: *Surgery [facility] - (Anesthesia) Discharge Instructions Outpatient Surgery, Peptic Ulcer (DC) Discharge Disposition: HOME SELF-CARE
[2024-03-05 10:51] VITALS: BP 129/92
[2024-03-05] MEDS: BUTALB/APAP/CAFF 50-325-40MG TAB PO STA (11:15)
== END 2024-03-05 11:39 | disposition home or self-care (01) ==
LOC: ORWHC2ENDO 08:10
PROVIDERS: ATTEND Surgery Plastic and Reconstructive Surgery
DX: K29.50 Unspecified chronic gastritis without bleeding (principal); K21.9 Gastro-esophageal reflux disease without esophagitis; I10 Essential (primary) hypertension; M06.9 Rheumatoid arthritis, unspecified; G43.909 Migraine, unspecified, not intractable, without status migrainosus; F41.9 Anxiety disorder, unspecified; F17.200 Nicotine dependence, unspecified, uncomplicated; Z79.899 Other long term (current) drug therapy; Z87.11 Personal history of peptic ulcer disease; Z98.84 Bariatric surgery status; Z90.49 Acquired absence of other specified parts of digestive tract; Z87.442 Personal history of urinary calculi
CPT/HCPCS: 88305; 43239; J2001; J2704

== ENCOUNTER → 2024-03-18 | Outpatient (CLI) | payer BC ==
--- NOTE | 2024-03-18 16:46 | P.BASOAP ---
Subjective Progress Note Date: 03/18/24 Lowest weight 148 pounds. She is up to 191 pounds. She had RA. She stopped exercising. Highest 300+. Her daughter is well. Labs. Assessment/Plan Plan: Date: Initial Weight: 140.069 kg Initial BMI: Current Weight: Current BMI: Type of Surgery: Total Volume in Band: Previous Volume: Volume Removed: Volume Added: Band Size:
[2024-03-18 16:57] VITALS: BP 122/85; PULSE 81; TEMP 98.1; BMI 36.1
== END ==
LOC: BARWHC3 15:20
PROVIDERS: ATTEND Surgery Plastic and Reconstructive Surgery
DX: E66.01 Morbid (severe) obesity due to excess calories (principal); M06.9 Rheumatoid arthritis, unspecified; F17.200 Nicotine dependence, unspecified, uncomplicated; Z68.36 Body mass index [BMI] 36.0-36.9, adult
CPT/HCPCS: 99211

== ENCOUNTER → 2024-03-21 | Outpatient (CLI) | payer BC ==
[2024-03-21 11:45] LABS: INR 0.9 (<1.2); Prothrombin Time 9.9 sec (10.0-12.5)
[2024-03-21 22:39] LABS: HCT 41.3 % (37.2-46.3); HGB 13.7 g/dL (12.0-15.0); MCH 32.3 pg (27.0-32.0); MCHC 33.2 g/dL (32.0-37.0); MCV 97.4 FL (80.0-97.0); Mean Platelet Volume 10.9 FL (9.5-12.2); NRBC Per 100 WBC 0 X 10*3/uL (0.00-0.01); Platelet Count 202 X 10*3/uL (140-440); RBC 4.24 X 10*6/uL (4.10-5.20); RDW 12.6 % (11.5-14.5)
[2024-03-21 22:42] LABS: Prealbumin 29.7 mg/dL (18.0-42.0)
[2024-03-21 23:10] LABS: % Iron Saturation 34.78 (12.00-45.00); ALT 37 U/L (8-44); AST 39 U/L (13-35); Albumin 4.3 g/dL (3.8-4.9); Albumin/Globulin Ratio 2.15 Ratio (1.60-3.17); Alkaline Phosphatase 104 U/L (41-126); BUN/Creat Ratio 29.71 Ratio (12.00-20.00); Blood Urea Nitrogen 20.8 mg/dL (9.0-27.0); Calcium 9.4 mg/dL (8.7-10.3); Carbon Dioxide 21.3 mmol/L (21.6-31.8); Chloride 101 mmol/L (96-109); Chol/HDL Ratio 2.23 Ratio; Glucose 88 mg/dL (70-110); Iron 112 UG/DL (50-170); LDL Cholesterol,Calculated 92.9 mg/dL (0.0-131.0); Phosphorus 3.9 mg/dL (2.4-5.1); Potassium 3.9 mmol/L (3.5-5.5); Sodium 139 mmol/L (135-145); Total Bilirubin 0.2 mg/dL (0.3-1.2); Total Iron Binding Capacity 322 UG/DL (228-460); Total Protein 6.3 g/dL (6.2-8.2)
== END | disposition home or self-care (01) ==
LOC: LABWHC1 08:09
PROVIDERS: ATTEND Surgery Plastic and Reconstructive Surgery
DX: E66.01 Morbid (severe) obesity due to excess calories (principal); E89.1 Postprocedural hypoinsulinemia; D50.8 Other iron deficiency anemias; K91.2 Postsurgical malabsorption, not elsewhere classified; E44.0 Moderate protein-calorie malnutrition; E44.1 Mild protein-calorie malnutrition; E45 Retarded development following protein-calorie malnutrition; E55.9 Vitamin D deficiency, unspecified; K74.1 Hepatic sclerosis; N19 Unspecified kidney failure; T56.894A Toxic effect of other metals, undetermined, initial encounter; K50.90 Crohn's disease, unspecified, without complications
CPT/HCPCS: 36415; 80053; 80061; 82306; 82525; 82607; 82728; 82746; 83036; 83540; 83550; 83735; 83970; 84100; 84134; 84255; 84425; 84443; 84590; 84630; 85027; 85610; 85730

== ENCOUNTER → 2024-04-04 | Outpatient (CLI) | payer BC | END | disposition home or self-care (01) | LOC: LABWHC1 08:12 | PROVIDERS: ATTEND Surgery Plastic and Reconstructive Surgery | DX: E66.01 Morbid (severe) obesity due to excess calories (principal) | CPT/HCPCS: 36415; 84425 ==

== ENCOUNTER → 2024-08-28 | Outpatient (CLI) | payer BC ==
--- NOTE | 2024-08-31 14:44 | MM ---
Reason for Exam: Screening (asymptomatic). Last screening mammogram was performed 12 month(s) ago. Patient History: Menarche at age 11. First Full-Term at age 23. Patient used Hormonal Contraceptives for 9 years. 2013, Bilateral Reduction. Last menstrual period: 04/08/2009 Risk Values: Kristin 5 year model risk: 1.4%. NCI Lifetime model risk: 7.3%. Prior Study Comparison: 08/10/2021 Bilateral Screening Mammogram, [facility]. 08/18/2021 Left Diagnostic Mammogram, [facility]. 08/26/2023 Bilateral MG 3D screening mammo w/cad, [facility]. Tissue Density: There are scattered areas of fibroglandular density. Findings: Analyzed By CAD. There is no suspicious group of microcalcifications or new suspicious mass in either breast. Overall Assessment: Benign, BI-RAD 2 Management: Screening Mammogram of both breasts in 1 year. . Patient should continue monthly self-breast exams. A clinical breast exam by your physician is recommended on an annual basis. This exam should not preclude additional follow-up of suspicious palpable abnormalities. Note on Kristin scores and lifetime risk: 1. A Kristin score greater than 3% is considered moderate risk. If this is the case, consider specialist referral to assess eligibility for a risk reducing agent. 2. If overall lifetime risk for the development of breast cancer is 20% or higher, the patient may qualify for future screening with alternating mammogram and breast MRI. [facility], , 08/31/2024 2:41 PM. Electronically signed and approved by: Kwadwo Jang M.D. Radiologis
== END | disposition home or self-care (01) ==
LOC: RADMAMWWP 14:53
PROVIDERS: ATTEND Obstetrics & Gynecology
DX: Z12.31 Encounter for screening mammogram for malignant neoplasm of breast (principal)
CPT/HCPCS: 77063; 77067

== ENCOUNTER → 2024-12-23 | Outpatient (CLI) | payer BC ==
--- NOTE | 2024-12-23 19:43 | CT ---
EXAMINATION TYPE: CT abdomen pelvis wo con CT DLP: 369.7 mGycm, Automated exposure control for dose reduction was used. DATE OF EXAM: 12/23/2024 5:37 PM COMPARISON: CT abdomen 12/15/2020, MR abdomen 05/18/2016, CT abdomen 07/18/2015 CLINICAL INDICATION:Female, 59 years old with history of N20.0 CALCULUS OF KIDNEY; Generalized abdomi nal pain. Hx of kidney stones. TECHNIQUE: Standard CT of the abdomen and pelvis without IV or oral contrast. Lack of IV or oral co ntrast limits evaluation of solid and hollow organ viscera. Coronal and sagittal reformats were perfo rmed. FINDINGS: LOWER CHEST: No significant findings. ABDOMEN LIVER: Unremarkable noncontrast appearance. GALLBLADDER AND BILE DUCTS: The gallbladder is surgically absent. No biliary ductal dilatation. PANCREAS: Unremarkable noncontrast appearance. SPLEEN: Unremarkable noncontrast appearance. ADRENAL GLANDS: Unremarkable noncontrast appearance. KIDNEYS AND URETERS: No evidence of hydronephrosis. Bilateral nonobstructive renal calculi. Approxima tely 10 right renal calculi with largest in the superior pole measuring up to 7 mm. There are approxi mately 4 nonobstructive left renal calculi with largest in the mid pole measuring 3 mm. No perinephri c fluid collections. No definitive ureteral calculus. PELVIS BLADDER: Underdistended limiting evaluation. REPRODUCTIVE: Unremarkable noncontrast appearance. ABDOMEN & PELVIS STOMACH AND BOWEL: Postsurgical changes from Baljit-en-Y gastric bypass.No focal bowel wall thickening or surrounding inflammatory changes. Mild to moderate stool is present within the proximal colon. The appendix is within normal limits. No evidence of bowel obstruction. PERITONEUM: No evidence of pneumoperitoneum or free fluid. VASCULATURE: No evidence of aortic aneurysm. Tortuosity of the abdominal aorta. Minimal atherosclerot ic calcification of the aorta and its branches. MUSCULOSKELETAL: No acute osseous abnormalities. Postsurgical changes with metallic disc material at L4-L5. Moderate degenerative disc disease at L5-S1. LYMPH NODES: No gross evidence for lymphadenopathy. SOFT TISSUE/ABDOMINAL WALL: Right lateral abdominal wall fat-containing lipoma of the right external oblique muscle measuring up to 4.1 cm redemonstrated. IMPRESSION: 1. No CT evidence for acute abdominopelvic process within limitations of a noncontrast exam. 2. Multiple nonobstructive bilateral renal calculi. [facility], , 12/23/2024 7:41 PM
== END | disposition home or self-care (01) ==
LOC: RADCTMAIN 17:19
PROVIDERS: ATTEND Family Medicine
DX: N20.0 Calculus of kidney (principal); Z87.442 Personal history of urinary calculi
CPT/HCPCS: 74176

== ENCOUNTER 2025-02-18 05:59 | Day surgery (SDC) | payer BC ==
[2025-02-15 16:37] VITALS: BMI 31.1
--- NOTE | 2025-02-15 19:27 | P.GSHP ---
History of Present Illness H&P Date: 02/15/25 Chief Complaint: Right flank pain The patient is a 60-year-old black female who presents with a 2-month history of right flank pain. CT scan shows 10 right renal calculi measuring up to 7 mm in size, along with 4 left renal calculi measuring up to 3 mm in size. There is no evidence of hydronephrosis. 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 She underwent a left renal angiogram in 2020, as the source of her hematuria was isolated to the left collecting system, but a lesion was not identified. - Constitutional Constitutional: Denies chills, Denies fever - Gastrointestinal Gastrointestinal: Denies nausea, Denies vomiting - Genitourinary (Female) Genitourinary: Reports flank pain, Reports hematuria, Reports kidney stones Past Medical History Past Medical History: GERD/Reflux, Hypertension, Rheumatoid Arthritis (RA) Additional Past Medical History / Comment(s): Migraines, hx of kidney stones. History of Any Multi-Drug Resistant Organisms: None Reported Past Surgical History: Adenoidectomy, Back Surgery, Bariatric Surgery, Breast Surgery, Section, Cholecystectomy, Orthopedic Surgery, Tonsillectomy, Uterine Ablation Additional Past Surgical History / Comment(s): BILATERAL KNEE ARTHROSCOPY, CYSTOSCOPY, LAPAROSCOPIC DARIAN-EN-Y, PANNICULECTOMY, breast reduction, cage in back. Past Anesthesia/Blood Transfusion Reactions: No Reported Reaction Smoking Status: Current every day smoker - Past Family History Father Family Medical History: Cancer Medications and Allergies Home Medications Medication Instructions Recorded Confirmed Type Buta/APAP/Caf/Cod 32-927-76-30 1 - 2 each PO DAILY PRN 03/24/14 02/15/25 History [Fioricet w/Cod 02-256-88-30MG] Omeprazole [PriLOSEC] 40 mg PO BID 03/24/14 02/15/25 History Ferrous Sulfate [Iron (65 MG 325 mg PO BID 06/13/15 02/15/25 History Elemental)] Folic Acid 1 mg PO DAILY 06/13/15 02/15/25 History ALPRAZolam [Xanax] 0.25 mg PO BID PRN 10/14/17 02/15/25 History Losartan-Hctz 50-12.5 mg [Hyzaar 1 each PO DAILY 10/14/17 02/15/25 History 50-12.5] Potassium 99 mg PO DAILY PRN 10/14/17 02/15/25 History oxyCODONE-APAP 10-325MG [Percocet 1 tab PO Q6HR PRN 08/11/19 02/15/25 History 10-325 mg] Cyclobenzaprine [Flexeril] 10 mg PO TID PRN 03/03/24 02/15/25 History Hydroxychloroquine Sulfate 200 mg PO BID 03/03/24 02/15/25 History Mv-Min/Folic/Vit K/Lut/Xpwt760 1 each PO DAILY 03/03/24 02/15/25 History [Alive Women's 50 Plus Tablet] Rizatriptan Benzoate [Rizatriptan] 10 mg PO DIRECTED PRN 03/03/24 02/15/25 History Aleve (Unknown Dose) 1 tab PO DIRECTED PRN 02/15/25 02/15/25 History Atogepant [Qulipta] 60 mg PO DAILY 02/15/25 02/15/25 History Calcium Carbonate [Calcium] 600 mg PO DAILY 02/15/25 02/15/25 History Cholecalciferol (Vitamin D3) 1,250 mcg PO MO 02/15/25 02/15/25 History [Vitamin D3 (1250 Mcg = 50,000 Iu)] Norethindrone Acetate 5 mg PO DAILY 02/15/25 02/15/25 History Semaglutide [Wegovy] 1.7 mg SQ SA 02/15/25 02/15/25 History estradioL [estradioL (Once Weekly) 1 patch TRANSDERM SA 02/15/25 02/15/25 History 0.025 mg Patch] Allergies Allergy/AdvReac Type Severity Reaction Status Date / Time No Known Allergies Allergy Verified 02/15/25 16:05 Surgical - Exam - General well developed, well nourished, no distress - Respiratory normal respiratory effort - Psychiatric oriented to time, oriented to person, oriented to place, speech is normal, memory intact Assessment and Plan (1) Calculus of kidney Status: Acute Code(s): N20.0 - CALCULUS OF KIDNEY SNOMED Code(s): 51227767 Plan: Cystoscopy, bilateral retrograde pyelograms, bilateral ureteroscopy with Holmium laser lithotripsy and stone basketing, bilateral ureteral stent insertion. The procedure has been reviewed in detail with the patient. She has been made aware infection, ureteral injury, and inability to remove all calculi.
[2025-02-18] MEDS ORDERED: LIDOCAINE 1% (10MG/ML) FOR IV START INTRADERMA PRN (06:02)
--- NOTE | 2025-02-18 06:24 | XR ---
EXAMINATION TYPE: XR KUB DATE OF EXAM: 02/18/2025 6:17 AM CLINICAL INDICATION: Female, 60 years old with history of calculus, pain TECHNIQUE: 2 supine images of the abdomen. COMPARISON: CT December 23, 2024 FINDINGS: Bilateral small nephrolithiasis x-ray versus CT as there is significant overlying colonic f ecal debris. Moderate colonic fecal material is present. Multiple small bilateral renal calculi are p resumed still present. Surgical change at L4-L5 level is redemonstrated. Nonobstructive bowel gas pattern. Surgical sutures left lateral mid abdomen are seen. There are Essure tubes redemonstrated overlying the pelvis. IMPRESSION: As above. [facility], , 02/18/2025 6:22 AM
[2025-02-18 06:52] VITALS: TEMP 97.6
[2025-02-18] MEDS ORDERED: fentaNYL (PF) 50 MCG/ML 2 ML AMP IV PRN (07:00)
[2025-02-18] MEDS: LACTATED RINGERS 1,000 ML IV SCH (07:00)
[2025-02-18] MEDS: IV FLUID CONTINUATION 1,000 ML IV ONE ×2 (07:01→07:34)
[2025-02-18] MEDS: ONDANSETRON 4 MG/2 ML VIAL IVP ONE (07:05)
[2025-02-18] MEDS: DEXAMETHASONE SOD PHOSPHATE 4 MG/ML 1 ML VIAL IV ONE (07:05)
[2025-02-18] MEDS ORDERED: LIDOCAINE 1% INJ 10MG/ML (20 ML MDV) ONE (07:33)
[2025-02-18] MEDS ORDERED: PROPOFOL 10 MG/ML 20 ML VIAL IV ONE (07:33)
[2025-02-18] MEDS ORDERED: GLYCOPYRROLATE 0.2 MG/ML 2 ML VIAL ONE (07:33)
[2025-02-18] MEDS ORDERED: ROCURONIUM 10 MG/ML (5 ML VIAL) IV ONE (07:33)
[2025-02-18] MEDS ORDERED: NEOSTIGMINE 1 MG/ML 10 ML VIAL ONE (07:33)
[2025-02-18] MEDS ORDERED: SUCCINYLCHOLINE CHLORIDE 200 MG/10 ML VIAL IV ONE (07:33)
[2025-02-18] MEDS ORDERED: MIDAZOLAM 2 MG/2 ML VIAL ONE (07:33)
[2025-02-18] MEDS ORDERED: fentaNYL (PF) 50 MCG/ML 2 ML AMP ONE (07:33)
--- NOTE | 2025-02-18 08:56 | FL ---
EXAMINATION TYPE: FL guidance operating room Intraoperative/procedural fluoroscopic services were pro vided. CLINICAL INDICATION:Female, 60 years old with history of CYSTOSCOPY LITHOTRIPSY; , [facility] FINDINGS: Multiple fluoroscopic images for bilateral renal calculi cystoscopy/lithotripsy with bilateral ureter al stent placement. No radiographic evidence for complication. Total fluoroscopy time is 56.5 seconds. DAP: [id number] mGym2 Please see the operative/procedural note for further details. [facility], , 02/18/2025 8:53 AM
[2025-02-18] MEDS: HYDROmorphone 0.5 MG/0.5 ML SYRINGE IVP PRN (09:17)
[2025-02-18 09:29] VITALS: RESP 16
[2025-02-18] MEDS: LACTATED RINGERS 1,000 ML IV ONE (09:30)
[2025-02-18] MEDS: KETOROLAC 15 MG/ML 1 ML VIAL IVP STA (10:21)
[2025-02-18 10:37] VITALS: BP 124/86; PULSE 69
--- NOTE | 2025-02-18 15:38 | P.OP ---
Date of Procedure: 02/18/25 Preoperative Diagnosis: Bilateral renal calculi Postoperative Diagnosis: Same Procedure(s) Performed: Cystoscopy, bilateral ureteroscopy with Holmium laser lithotripsy, bilateral ureteral stent insertion Anesthesia: ISAIASA Surgeon: Torsten Long Estimated Blood Loss (ml): 5 IV fluids (ml): 850 Pathology: none sent Condition: stable Disposition: PACU Indications for Procedure: The patient is a 60-year-old black female who presents with a 2-month history of right flank pain. CT scan shows 10 right renal calculi measuring up to 7 mm in size, along with 4 left renal calculi measuring up to 3 mm in size. There is no evidence of hydronephrosis. 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 She underwent a left renal angiogram in 2020, as the source of her hematuria was isolated to the left collecting sy stem, but a lesion was not identified. Operative Findings: Bilateral small renal calculi, fragmented completely. Description of Procedure: The patient was taken to the operating room and placed in the dorsolithotomy position, with legs supported in Angelo stirrups. The external genitalia was prepped and draped sterilely. The 30 lens was used to introduce the 21-Slovak Corbett cystoscopic sheath through the urethra and into the bladder under direct vision. The bladder was examined in its entirety. Both ureteral orifices were normal anatomic location and configuration, and clear urine effluxed from both. No tumors or foreign bodies were seen. A 0.038 inch Glidewire was passed through the cystoscope. The right ureteral orifice was cannulated, and the Glidewire was advanced up to the renal pelvis. The cystoscope was removed, and an 11/13-Slovak ureteral access catheter was passed over the wire, up to the proximal ureter. The Corbett Ketsura flexible ureteroscope was then passed through the ureteral access catheter sheath and advanced under direct vision, up to the UPJ. It was difficult to pass the ureteroscope through the UPJ, and therefore the Glidewire was passed through the ureteroscope and the ureteroscope was advanced over the Glidewire, into the renal pelvis. Each calyx was examined. A 6 mm right midpole calyceal calculus was identified. The 272 micron Holmium laser probe was passed through the ureteroscope, and lithotripsy was performed utilizing a dusting mode. This was continued until there were no residual calc ulus fragments exceeding the size of the laser fiber tip. The remaining calyces were then examined, and several additional calculi were identified and treated in an identical fashion. No additional calculi were seen. The ureteroscope was slowly withdrawn under direct vision. Pullout ureteroscopy showed no evidence of ureteral trauma. The ureteral access catheter was placed on the left side in an identical fashion, and ureteroscopy was performed. Interestingly, within an upper pole calyx was an area that looked as if it had recently blood, perhaps representing the AVM which was suspected in the past. Calculi were identified within the midpole and lower pole calyces, and these were treated once again utilizing a dusting mode, leaving no calculus fragments exceeding the size of the laser fiber tip. Once again, pullout ureteroscopy showed no evidence of ureteral trauma. The cystoscope was inserted into the bladder. The Glidewire was passed through the cystoscope. The right ureteral orifice was cannulated, and the Glidewire was advanced up to the right renal pelvis. A 24 cm, 4.8 Slovak double-J ureteral stent was placed. Proper stent positioning was verified fluoroscopically and endoscopically. The same was then performed on the left side, with a 24 cm, 6 Slovak double-J ureteral stent placed. The bladder was emptied and the cystoscope removed. The patient tolerated the procedure well and was taken to the recovery room in stable condition. TOMER MORRIS Report: Procedure Acuity: Elective Stone Size and Location: 6 mm, right midpole Ureteral Dilation: No Ureteral Access Sheath Used: Yes Stone Sent for Analysis: No All Stones/Fragments Were Removed with a Basket: No Complications: No Preoperative Antibiotics Given: Yes Stent Placed: Yes If Stent Placed, Was String Left Attached: No If Stent Placed, When is it to be Removed: 1 week Discharge Medications: Toradol, tamsulosin, tolterodine
== END 2025-02-18 11:03 | disposition home or self-care (01) ==
LOC: OR 05:59
PROVIDERS: ATTEND Urology
DX: N20.0 Calculus of kidney (principal); I10 Essential (primary) hypertension; M06.9 Rheumatoid arthritis, unspecified; F17.200 Nicotine dependence, unspecified, uncomplicated; Z87.442 Personal history of urinary calculi
CPT/HCPCS: 74018; 52356; J2250; J0330; J1100; J2710; J0690; J2405; J2003; J3010; J1885; J2704; J1171; J1596

== ENCOUNTER → 2025-03-25 | Outpatient (CLI) | payer BC ==
--- NOTE | 2025-03-25 17:11 | US ---
EXAMINATION TYPE: US kidneys/renal and bladder DATE OF EXAM: 03/25/2025 COMPARISON: CT 2024 CLINICAL INDICATION: Female, 60 years old with history of N20.0 CALCULUS OF KIDNEY; Calculus. No pain . Pt had procedure to remove kidney stones bilaterally 2 weeks ago. TECHNIQUE: Grayscale imaging of the bilateral kidneys and urinary bladder: FINDINGS: EXAM MEASUREMENTS: Right Kidney: 11.5 x 6.2 x 4.8 cm Left Kidney: 10.8 x 6.4 x 6.2 cm Right Kidney: *Complex area seen lower pole: 1.6 x 1.6 x 1.6 cm. *Hyperechoic focus with posterior shadowing seen upper pole: 0.7 x 1.0 x 0.6 cm. Left Kidney: No hydronephrosis or masses seen Bladder: Slightly limited due to bowel gas. Bilateral Jets seen: Yes IMPRESSION: 1. Bilateral nonobstructing nephrolithiasis. 2. Fullness of the renal collecting system lower pole right kidney. [facility], , 03/25/2025 5:08 PM
== END | disposition home or self-care (01) ==
LOC: RADUSWWP 16:21
PROVIDERS: ATTEND Urology
DX: N20.0 Calculus of kidney (principal); N28.89 Other specified disorders of kidney and ureter; Z87.442 Personal history of urinary calculi
CPT/HCPCS: 76770